=== PATIENT | female | born 1950 | race Caucasian/White ===

== ENCOUNTER 2019-04-17 12:17 | Outpatient (CLI) | payer MEDICARE, OTHER, SELFPAY ==
[2019-04-17 13:07] LABS: Basophils # 0.1 10^3/uL (0.0-0.1); Basophils % 0.7 %; Eosinophils # 0.3 10^3/uL (0.0-0.8); Eosinophils % 2.6 %; Hematocrit 49.8 % (37.0-47.0); Hemoglobin 16.1 g/dL (11.5-15.3); Lymphocytes # 2.8 10^3/uL (0.8-4.8); Lymphocytes % 26.1 %; Mean Corpuscular HGB Conc 32.3 g/dL (30.0-36.0); Mean Corpuscular Hemoglobin 27.7 pg (28.0-34.0); Mean Corpuscular Volume 85.6 fL (81-99); Mean Platelet Volume 11.4 fL (7.4-10.4); Monocytes # 0.7 10^3/uL (0.2-0.9); Monocytes % 6.4 %; Neutrophils # 6.9 10^3/uL (1.8-7.7); Neutrophils % 63.8 %; Nucleated Red Blood Cells % 0 %; Platelet Count 352 10^3/cmm (130-400); Red Blood Count 5.82 10^6/uL (4.1-5.3); Red Cell Distribution Width 14.4 % (12.1-15.1); White Blood Count 10.8 10^3/uL (4.0-10.0)
[2019-04-17 13:56] LABS: Estmated Average Glucose 229; Hemoglobin A1C 9.6 % (4.0-6.0)
[2019-04-17 13:58] LABS: Alanine Aminotransferase 23 U/L (0-33); Albumin Level 4.5 g/dL (3.5-5.2); Alkaline Phosphatase 84 IU/L (35-105); Anion Gap 21.3 (5-19); Aspartate Amino Transferase 15 U/L (0-32); Blood Urea Nitrogen 15 mg/dL (8-23); Calcium 10.7 mg/dL (8.5-10.5); Carbon Dioxide 23 mmol/L (22-29); Chloride 103 mmol/L (98-107); Globulin 3.6 g/dL (1.3-4.6); Glomerular Filtration Rate 98.8 mL/min (90-130); Glucose 214 mg/dL (65-115); Potassium 4.3 mmol/L (3.5-5.1); Sodium 143 mmol/L (136-145); Thyroid Stimulating Hormone 2.88 uIU/mL (0.27-4.20); Total Bilirubin 0.2 mg/dL (0.15-1.2); Total Protein 8.1 g/dL (6.6-8.7)
[2019-04-17 14:08] LABS: 25 Hydroxy Vitamin D 22 ng/mL (30-100)
== END 2019-04-17 12:18 | disposition home or self-care (01) ==
PROVIDERS: PCP Nurse Practitioner Family; Visit Provider Nurse Practitioner Family
DX: E11.9 Type 2 diabetes mellitus without complications (principal); I10 Essential (primary) hypertension
CPT/HCPCS: 80053; 82306; 83036; 84443; 85025

== ENCOUNTER 2019-04-27 11:40 | Outpatient (CLI) | payer MEDICARE, OTHER, SELFPAY ==
--- NOTE | 2019-04-27 12:43 | CT_ITS ---
WS: [id number] CT ABDOMEN AND PELVIS NONCONTRAST HISTORY: ABDOMINAL PAIN,BLOATING, FLATULENCE AND GAS PAIN TECHNIQUE: Imaging performed through the abdomen and pelvis. Coronal and sagittal reformats are submi tted. All CT scans at [facility] use at least one of these dose optimization techniques: automated exposure control; mA and/or kV adjustment per patient size (includes targeted exams where d ose is matched to clinical indication); or iterative reconstruction. DLP: 1133.02 mGycm COMPARISON: 08/02/2017 Lower thorax: Lung bases are clear. No hiatal hernia. Liver: Normal size liver with mild hepatic steatosis. No bile duct dilatation. Gallbladder: Prior cholecystectomy. Pancreas: Normal. Spleen: Normal. Adrenal glands: LEFT adrenal nodule measures 15 mm and is stable. RIGHT adrenal gland is normal. Right kidney: Normal size with no stones, masses or atrophy. Left kidney: Normal size with no stones, mass or atrophy. Moderate atherosclerosis throughout the abdominal aorta. No aneurysm. No free fluid, intraperitoneal air or significant lymphadenopathy. GI tract: Prior appendectomy. No GI tract obstruction. No GI tract obstruction. There is a ventral ab dominal wall hernia for which a loop of transverse colon is partially extending through. Not causing a significant obstruction. Similar to the prior study. Small lipoma in the duodenal C-loop is unchang ed. Abdominal wall: Ventral abdominal wall hernia above the umbilicus contains a partially extruded porti on of the transverse colon. No obstruction. There is a larger fat-containing abdominal wall hernia ov er the pelvis. LEFT lateral spigelian hernia may have been surgically fixed. Soft tissue lipomas are present over the LEFT external oblique muscle and also within the gluteus muscles of the LEFT pelvis . Pelvis: No free fluid or adenopathy. Status post hysterectomy. Osseous structures: RIGHT convex curvature of the lumbar spine. CT/CT abdomen pelvis wo con [id number] IMPRESSION: 1. No acute abdominal or pelvic abnormalities. 2. Prior cholecystectomy and hysterectomy. 3. Mild hepatic steatosis. 4. Stable supraumbilical and infraumbilical abdominal wall hernias with no obs truction of the GI tract. 5. Moderate atherosclerosis aorta.
[2019-04-27] MEDS: iohexol 300 mg/mL 50 mL Btl PO (13:33)
== END 2019-04-27 11:41 | disposition home or self-care (01) ==
LOC: RADWPI 11:46
PROVIDERS: Family Provider Nurse Practitioner Family; PCP Nurse Practitioner Family; Visit Provider Nurse Practitioner Family
DX: K42.9 Umbilical hernia without obstruction or gangrene (principal); I70.0 Atherosclerosis of aorta; R14.0 Abdominal distension (gaseous); R14.1 Gas pain; K76.0 Fatty (change of) liver, not elsewhere classified; Z90.49 Acquired absence of other specified parts of digestive tract; Z90.710 Acquired absence of both cervix and uterus
CPT/HCPCS: 74176

== ENCOUNTER 2019-05-04 07:17 | Outpatient (CLI) | payer MEDICARE, OTHER, SELFPAY ==
--- NOTE | 2019-05-04 08:30 | ECG_ITS ---
NAME OF STUDY: LEXISCAN SESTAMIBI STRESS TEST INDICATION: Chest Pain, PROCEDURE: At the baseline, the EKG revealed normal sinus rhythm with some nonspecific T wave changes. The baseline blood pressure was 182/83 mm Hg with a heart rate of 77 beats/min. Lexiscan was infused over a period of 20 seconds. A total of 0.4 milligrams of Lexiscan was infused. The stress phase was continued for a total of 5 minutes. Heart rate at the end of the stress phase was 88 with a blood pressure 168/79. The EKG at the peak infusion revealed no significant changes. Sestamibi was injected 20 seconds after the Lexiscan infusion. Blood pressure at the end of the recovery phase was 164/79 with a heart rate of 76 per minute. CONCLUSION: 1. No significant EKG changes with the LexiScan infusion 2. No LexiScan induced chest pain or cardiac arrhythmia 3. Normal blood pressure and heart rate response 4. Sestamibi/sestamibi perfusion scan pending; see separate report. Electronically Signed On 05-08-2019 22:59:49 INDUSTRIAL ENGINEERING DIRECTOR by Wenceslao Salazar M.D. [email or web address]
--- NOTE | 2019-05-04 08:30 | NMCV_ITS ---
NM negrito perf SPECT r/s* [id number] Nat Amin Age: 69 Gender: F : 1950 Exam Date: 05/04/2019 08:30 Ordering Phys: Guy Bee NP Technologist: ABDOUL Fernandez Exam Location: [facility] Indications: CHEST PAIN STRESS TEST Please see separate stress test report in [facility] for full findings IMAGE PROTOCOL Rest/Stress 1 Lexiscan Day Radiopharmaceutical Dose (mCi) Administration Site Administered by Rest: Tc-99m 10.9 IV ABDOUL Zurita Sestamibi Stress:Tc-99m 32.7 IV ABDOUL Zurita Sestamibi Rest: 04-May-2019 60 Discovery 630 Stress: 04-May-2019 30 Discovery 630 0.4mg Lexiscan. Images obtained in supine and prone position. SPECT RESULTS Technical Quality: Excellent Raw Data Analysis: Normal Image Corrections: No attenuation or motion correction applied Summed Stress Score: 1 Summed Rest Score: 1 Summed Difference Score: 1 PERFUSION FINDINGS Small area of slightly decreased tracer uptake in the mid infero-lateral region, with the supine imaging. Some reversibility was noted in this region with the supine imaging. No significant perfusion abnormalities were noted with the prone imaging FUNCTIONAL RESULTS (calculated via Gated SPECT) Stress Image LV EF (%): 89 Stress EDV (mL):61 TID: 1.23 Stress ESV (mL):7 FUNCTIONAL FINDINGS: Segmental wall motion analysis revealing no gross wall motion normalities. IMPRESSIONS 1. Myocardial perfusion imaging revealing a small area of reversible defect in the mid inferolateral region, suggestive of ischemia in the distribution of the left circumflex artery. However because of the inconsistency in this finding, the reliability is very questionable. Elevated transient ischemic dilatation index may suggest endocardial ischemia. However the positive predictive value of this finding is limited. 2. Normal LV ejection fraction of 89%. 3. LV wall motion analysis revealing no gross wall motion normalities. 4. Normal LV volume. No similar previous studies are available for comparison Dr Wenceslao Salazar MD [facility] (Electronically Signed) Final Date: 04 May 2019 21:50 S
[2019-05-04 08:31] VITALS: BMI 33.2
[2019-05-04] MEDS: regadenoson 0.4 Mg/5 ml Syringe IVP (09:34)
[2019-05-04 10:08] VITALS: BP 170/79; PULSE 96
== END 2019-05-04 07:18 | disposition home or self-care (01) ==
LOC: RAD 07:19
PROVIDERS: Family Provider Nurse Practitioner Family; PCP Nurse Practitioner Family; Visit Provider Nurse Practitioner Family
DX: R07.9 Chest pain, unspecified (principal)
CPT/HCPCS: 78452; 93017; A9500; J2785

== ENCOUNTER 2019-07-10 07:54 | Day surgery (SDC) | payer MEDICARE, OTHER, SELFPAY ==
[2019-07-10 08:14] VITALS: BP 167/83; PULSE 73; RESP 18; TEMP 36.4; O2SAT 97
[2019-07-10] MEDS: sodium chloride 0.9% 1,000 ML 30 ML IV (08:25)
[2019-07-10 08:27] LABS: Glucose Point of Care 85 mg/dL (70-110)
--- NOTE | 2019-07-10 08:36 | W.PM.OPSFHP ---
Same Day Surgery H&P Indication for Procedure/HPI DATE OF PROCEDURE: July 10, 2019 CHIEF COMPLAINT/INDICATIONFOR SURGICAL PROCEDURE: history of colon cancer PREOP DIAGNOSIS: history of colon cancer PLANNED PROCEDRUE: Operation Date: 07/10/19 09:20 Proposed Procedures p Colonoscopy 84470 Z85.038(Not Applicable) - Holger Velazquez MD Medications/Allergies* Home Medications Medication Instructions Recorded Confirmed Type amlodipine 10 mg tablet 10 mg PO DAILY tab 03/14/19 07/10/19 History insulin degludec 100 unit/mL (3 45 unit SUBCUT BID 03/14/19 07/10/19 History mL) subcutaneous pen aspirin 81 mg tablet,delayed 81 mg PO DAILY 05/28/19 07/10/19 History release empagliflozin 10 mg tablet 10 mg PO DAILY 05/28/19 07/10/19 History levothyroxine 50 mcg capsule 50 mcg PO DAILY 05/28/19 07/10/19 History metoprolol succinate 50 mg 50 mg PO BID 05/28/19 07/10/19 History tablet,extended release 24 hr omega-3 fatty acids 1,000 mg 1,000 mg PO DAILY 05/28/19 07/10/19 History capsule cholecalciferol (vitamin D3) 25 mcg PO DAILY 07/10/19 07/10/19 History [Vitamin D3] Allergies/Adverse Reactions Allergy/AdvReac Type Severity Reaction Status Date / Time acetaminophen [From Codaphen] Allergy UNK Verified 07/09/19 09:08 atorvastatin [From Lipitor] Allergy UNK Verified 07/09/19 09:08 codeine [From Codaphen] Allergy UNK Verified 07/09/19 09:08 lactase [From Dairy Aid] Allergy UNK Verified 07/09/19 09:08 latex Allergy UNK Verified 07/09/19 09:08 Penicillins Allergy UNK Verified 07/09/19 09:08 soy Allergy UNK Verified 07/09/19 09:08 Sulfa (Sulfonamide Allergy UNK Verified 07/09/19 09:08 Antibiotics) Current Medications: Generic Name Dose Route Start Last Admin Trade Name Freq PRN Reason Stop Dose Admin Sodium Chloride 1,000 mls @ 30 mls/hr 07/10/19 08:00 07/10/19 08:25 Sodium Chloride 0.9% IV 07/11/19 07:59 30 mls/hr .Q24H CHRISTINE Administration Pertinent History/Comorbid Conditions* Medical History (Updated 05/30/19 @ 17:09 by Rosio Canales MD) Borderline hyperlipidemia Colon cancer Diabetes Diabetes 1.5, managed as type 2 History of colon cancer HTN (hypertension) with goal to be determined Hypothyroidism Incisional hernia Statin intolerance Surgical History (Updated 05/22/19 @ 09:47 by Holger Velazquez MD) H/O ventral hernia repair History of cholecystectomy History of colon resection Status post colonoscopy (~04/2014) Family History (Updated 05/21/19 @ 14:59 by Teddy Burns) Diabetes Father Cancer Denies family history of Anesthesia complication Social History Smoking and tobacco status: former smoker Alcohol intake: never Pertinent Exam Findings alert, oriented x 3 and clear to auscultation bilaterally Recommendations Surgery/Procedure today Coding Level of Care Code Acute Manager Internal for Bryn Li
--- NOTE | 2019-07-10 09:01 | ANES.PREANE2 ---
Pre-Anesthetic Assessment Pre-Anesthetic Assessment: Height/Weight: Height 1.52 m Weight 74.843 kg Temp Pulse Resp BP Pulse Ox 97.5 F L 73 18 167/83 97 07/10/19 08:14 07/10/19 08:14 07/10/19 08:14 07/10/19 08:14 07/10/19 08:14 Preop Diagnosis: history of colon cancer Proposed Procedure: Operation Date: 07/10/19 09:20 Proposed Procedures p Colonoscopy 89743 Z85.038(Not Applicable) - Holger Velazquez MD Was Beta Pankaj taken within 24 hours: Yes Last intake: Intake Last Liquid Date 07/09/19 Last Liquid Time 19:30 Last Solid Date 07/09/19 Last Solid Time 19:30 Social: Social History: No alcohol and No tobacco Exam: Pre-Anes Outpt Exam: alert, oriented x 3, clear to auscultation bilaterally and regular rate & rhythm Airway: Submandibular: WNL Cervical ROM: WNL MP: 2 Dentition: False History/ROS: No significant history except as noted and No significant complaints Pulmonary: Pulmonary: None reported CV/HEM: CV/HEM: HTN : : None reported Hepatic: Hepatic: None reported GI: GI: GERD Metabolic: Metabolic: Thyroid Musc/skel: Musc/skel: OA/DJD Neuropsych: Neuropsych: None reported Anesthetic Plan: ASA status: 2 Anesthesia: Anesthesia Evaluation and MAC Risk of > 500 ml blood loss (7ml/kg in children): No Meds/Allergies Current Medications: Current Medications Generic Name Dose Route Start Last Admin Trade Name Freq PRN Reason Stop Dose Admin Sodium Chloride 1,000 mls @ 30 ml s/hr 07/10/19 08:00 07/10/19 08:25 Sodium Chloride 0.9% IV 07/11/19 07:59 30 mls/hr .Q24H CHRISTINE Administration PFSH Anesthesia PFSH: Social History Smoking and tobacco status: former smoker Alcohol intake: never Data Anesthesia Other Labs: Laboratory Results - last 48 hr 07/10/19 08:23 POC Glucose 85 Cardiac Studies: No Data to Display
[2019-07-10 09:49] VITALS: BP 91/52; PULSE 65; RESP 16; TEMP 36.3; O2SAT 94
[2019-07-10 09:53] VITALS: BP 102/56; PULSE 74; RESP 18; O2SAT 92
== END 2019-07-10 10:29 | disposition home or self-care (01) ==
PROVIDERS: Family Provider Nurse Practitioner Family; Visit Provider Surgery
PROC: 0DJD8ZZ Inspection of Lower Intestinal Tract, Via Natural or Artificial Opening Endoscopic (ICD-10-PCS; CPT 45378; principal; 2019-07-10 09:15)
DX: Z85.038 Personal history of other malignant neoplasm of large intestine (principal); K57.30 Diverticulosis of large intestine without perforation or abscess without bleeding; K64.8 Other hemorrhoids; I10 Essential (primary) hypertension; K21.9 Gastro-esophageal reflux disease without esophagitis; M19.90 Unspecified osteoarthritis, unspecified site; Z87.891 Personal history of nicotine dependence; E13.9 Other specified diabetes mellitus without complications; Z79.4 Long term (current) use of insulin
CPT/HCPCS: 45385; 12345; 36416; 82962; 88305; J2001; J2704; J7030

== ENCOUNTER 2019-08-27 10:50 | Outpatient (CLI) | payer MEDICARE, OTHER, SELFPAY ==
--- NOTE | 2019-08-27 10:58 | MM_ITS ---
WS: [id number] SCREENING DIGITAL MAMMOGRAM WITH CAD HISTORY: SCREENING COMPARISON: None available. Bilateral CC and MLO views submitted. Computer aided detection analyzed. Breast composition: There are scattered areas of fibroglandular density. Well-circumscribed 8 mm nodu le in the medial RIGHT breast near 9:00 needs further evaluation. There is additional mild asymmetry seen on the lateral projection of the RIGHT breast in the upper portion for which additional imaging recommended also. There are benign calcifications within each breast. RIGHT breast: Spot compression views (CC and MLO). True ML. Ultrasound to follow if abnormality persi sts. MM/[place] [id number] IMPRESSION: BI-RADS: 0-Incomplete: Need additional imaging evaluation FOLLOW UP: Need Additional Imaging
== END 2019-08-27 10:51 | disposition home or self-care (01) ==
LOC: RADSHAW 10:57
PROVIDERS: PCP Nurse Practitioner Family; Visit Provider Nurse Practitioner Family
DX: Z12.31 Encounter for screening mammogram for malignant neoplasm of breast (principal); N63.15 Unspecified lump in the right breast, overlapping quadrants; N64.89 Other specified disorders of breast
CPT/HCPCS: 77067

== ENCOUNTER 2019-09-03 09:31 | Outpatient (CLI) | payer MEDICARE, OTHER, SELFPAY ==
--- NOTE | 2019-09-03 09:39 | US_ITS ---
WS: [id number] ADDITIONAL VIEWS RIGHT BREAST RIGHT breast ultrasound, limited HISTORY: ABNORMAL MAMMOGRAM COMPARISON: Mammogram 08/27/2019 Compression views right CC and MLO projection. True ML also submitted. Well-circumscribed nodule persists measuring 8 mm 3:00 axis of the RIGHT breast at a mid to anterior depth. Asymmetry in the upper outer quadrant with no distortion persists. Probably normal fibroglandu lar density for this patient. Ultrasound will be obtained. RIGHT breast ultrasound, limited. Ultrasound at 3:00 demonstrates a hypoechoic mass which is well-circumscribed measuring 6 x 6 x 7 mm. Corresponds to the mammographic abnormality. Upper-outer quadrant of the RIGHT breast is negative. No abnormal lymph nodes. Ultrasound-guided biopsy recommended of the hypoechoic mass at 3:00 RIGHT breast, 2 cm from nipple. F avor this is probably benign. With no prior studies for comparison biopsy should be obtained at this time. US/US breast RT limited* [id number] IMPRESSION: BI-RADS: 4A-Suspicious: Low FOLLOW-UP: Biopsy Recommended
== END 2019-09-03 09:32 | disposition home or self-care (01) ==
LOC: RADSHAW 09:37
PROVIDERS: PCP Nurse Practitioner Family; Visit Provider Nurse Practitioner Family
DX: R92.8 Other abnormal and inconclusive findings on diagnostic imaging of breast (principal)
CPT/HCPCS: 76642; 77065

== ENCOUNTER → 2019-09-11 06:13 | Day surgery (SDC) | payer MEDICARE, OTHER, SELFPAY ==
[2019-09-10 09:38] VITALS: BMI 31.8
[2019-09-11] VITALS (15 sets, daily range): BP systolic 119–168; BP diastolic 65–91; PULSE 64–76; RESP 16–18; TEMP 37; O2SAT 69–96; BMI 31.8
--- NOTE | 2019-09-11 06:00 | XACV_ITS ---
Ht: 152 cm Wt: 74 kg BSA: 1.80 m2 Gender: Female : 1950 Any Known Allergies: Other Exam Priority: Routine Procedure(s): Procedure Description: Diagnostic procedure Procedure Description: Left Heart Catheterization Procedure Description: Left ventriculography Procedure Description: Coronary Angiography Diagnostic Cath Status: Elective Diagnostic Findings Patient with atypical pain and mild abnormality on stress testing referred for coronary angiography. Coronary circulation is codominant. The left main coronary artery is normal. The circumflex contains mild luminal irregularities in the midportion. The LAD is essentially normal however a small tiny branch of the first diagonal contains an 80% stenosis. The right coronary artery ends as a posterior left ventricular branch and a posterior descending artery. There is minor 20 to 30% stenosis in the proximal to midportion. Conclusions Mild nonobstructive coronary artery disease. Normal left ventricular function. Recommendations I called her for discussion. Medical treatment. Interventional RX Recommendation: medical therapy and/or counseling Diagnostic RX Recommendation: medical therapy and/or counseling Anticoagulation: Heparin Ventriculography Ejection Fraction: 60.0 % Pressures Phase:Rest AO : 106 mmHg / 54 mmHg ( 76 mmHg ) @ 2:13:00 AM 105 mmHg / 67 mmHg ( 84 mmHg ) @ 2:13:00 AM 137 mmHg / 61 mmHg ( 94 mmHg ) @ 2:21:00 AM 141 mmHg / 65 mmHg ( 98 mmHg ) @ 2:21:00 AM LV : 133 mmHg / -6 mmHg / @ 2:19:00 AM 139 mmHg / 2 mmHg / @ 2:21:00 AM 141 mmHg / -3 mmHg / @ 2:21:00 AM Valves Phase:DefaultPhase AV : 7.0 mmHg @ 7:30:01 AM 7.0 mmHg @ 7:30:01 AM AV Mean Gradient: 13.0 mmHg @ 7:30:01 AM Clinical Evaluation EBL: 5mL-10mL Procedural Details Procedure Consent Obtained. Current Diagnosis : Chest Pain. Pre-Procedure Time Out. Identified patient by full name and date of as verbalized by the patient/guarantor. Does the consent match the physician's order: Yes. Accurate & Complete Informed Consent: Yes. Inpatient/Outpatient History & Physical on Chart: Yes. If H&P is completed, is and addenduem needed: No; If yes, is the addendum complete: N/A. Visualize and Verify Site with Patient/Guarantor: N/A. Relevant Radiology Images available: Yes. Pre-op teaching completed and patient verbalized understanding. The risks, benefits, and alternatives of sedation and/or procedure were discussed by physician. The patient agrees to continue. Procedure started. [facility] Clinical Fraility Score: 3: Managing Well. Weight Reduction Specialist Indications: Suspected CAD. Chest Pain Symptom Assessment: Typical Angina Symptoms. Correct patient, site and procedure confirmed by cath team. Current diagnosis: Chest Pain. PERRLA. Strong, equal hand steam blocker bilaterally. Lungs clear x 5 lobes. IV Site on Arrival: 20 gauge in the left forearm. IV Fluids: 0.9% NaCl at KVO. 0 mL infused prior to offset label rewinder. Pre Procedural Pulses: right radial was 2+. Oxygen started at 2liters/min via nasal canula. right groin was prepped with chloroprep then draped in the usual sterile fashion. right radial was prepped with chloroprep then draped in the usual sterile fashion. Physician notified. Baseline sample Acquired. HR: 79 BPM. Patient's family unavailable. Baseline sample Acquired. HR: 83 BPM. Physician arrived. Physician scrubbed in. Immediate Pre-Procedure Time Out. Correct Patient: Yes; Correct Procedure: Yes; Correct Site: Yes; Correct Patient Position: Yes; Correct Supplies: Yes; Dried Flammable Prep: Yes; Blood Products Available: N/A;. Lidocaine 1% infiltrated to the right radial. Arterial access obtained. A 6 [place] TIG catheter in over wire. Multiple views taken of left coronary artery. Catheter redirected to the RCA. Multiple views taken of right coronary artery. Catheter removed over the exchange wire. A 6 [place] Angled Pig catheter in over wire. EDP Sample taken: LV 133/-7,18; HR: 78 BPM; SpO2: 95%. LV gram performed in HUMMEL @ 10 mL/second for a total of 30 mL. EDP Sample taken: LV 139/2,26; HR: 77 BPM; SpO2: 96%. Pullback taken: LV 141/-4,23; AO 137/61(94); Mean: 13mmHg, Peak to Peak: 7mmHg, SEP: 18sec/min; HR: 76 BPM; SpO2: 95%. Physician review of cine films. Catheter removed over the exchange wire. Physician scrubbed out. TR band placed. Hemostasis obtained. A TR Band was successful obtaining hemostatsis at the Right Radial artery insertion site. Post Procedure: Pulses reassessed and unchanged. PERRLA. Strong, equal hand steam blocker bilaterally. No VTE prophylaxis required. Total IV fluids: 50 mL. Contrast type used: Visipaque 320 mgI/mL, 500 mL bottle. Post-op diagnosis: Chest Pain. Complications: None. Estimated blood loss: 5mL-10mL. Procedure completed. Vital chart was stopped. Patient transferred by wheelchair to 1st floor. Medication's Wasted: Nitro = 49.8 mcg. Medication's Wasted: Lidocaine 1% = 18 mL. Medication's Wasted: Heparin = 1000 units. Site: Right Radial artery Sheath Size: 6 Fr Hemostasis Method: TR Band Hemostasis Success: Successful Procedure Medications Start: 7:07 AM Stop: 7:07 AM Medication: Versed Amount: 1 mg Route: I.V. Start: 7:07 AM Stop: 7:07 AM Medication: Fentanyl Amount: 50 mcg Route: I.V. Start: 7:09 AM Stop: 7:09 AM Medication: Verapamil Amount: 5 mg Route: I.A. Start: 7:09 AM Stop: 7:09 AM Medication: Nitrogylcerin Amount: 200 mcg Route: I.A. Start: 7:09 AM Stop: 7:09 AM Medication: Fentanyl Amount: 50 mcg Route: I.V. Start: 7:09 AM Stop: 7:09 AM Medication: Versed Amount: 1 mg Route: I.V. Start: 7:12 AM Stop: 7:12 AM Medication: Heparin Amount: 5000 units Route: I.V. I, the attending physician, have reviewed and verified all procedure medications. Yes, all medications given per verbal order History/Risk Factors Hypertension: Yes Dyslipidemia: Yes Diabetic Therapy: Insulin Peripheral Arterial Disease (PAD): No Myocardial Infarction (MO): No Obesity: No Renal Disease: No Tobacco Use: Former Prior Interventions PCI: No CABG: No Valve Surgery: No Report Signatures Finalized by:Dr. Phuc Fowler MD on 09/11/2019 7:52:53 AM
[2019-09-11] MEDS: diphenhydrAMINE 50 mg Capsule PO (06:45)
[2019-09-11 06:48] LABS: Basophils # 0.1 10^3/uL (0.0-0.1); Basophils % 0.9 %; Eosinophils # 0.7 10^3/uL (0.0-0.8); Eosinophils % 5.7 %; Hematocrit 50.8 % (37.0-47.0); Lymphocytes # 3.7 10^3/uL (0.8-4.8); Lymphocytes % 30.7 %; Mean Corpuscular HGB Conc 31.5 g/dL (30.0-36.0); Mean Corpuscular Hemoglobin 27.7 pg (28.0-34.0); Mean Corpuscular Volume 87.9 fL (81-99); Mean Platelet Volume 10.8 fL (7.4-10.4); Monocytes # 0.8 10^3/uL (0.2-0.9); Monocytes % 6.3 %; Neutrophils # 6.8 10^3/uL (1.8-7.7); Neutrophils % 55.8 %; Nucleated Red Blood Cells % 0 %; Platelet Count 339 10^3/cmm (130-400); Red Blood Count 5.78 10^6/uL (4.1-5.3); Red Cell Distribution Width 14.2 % (12.1-15.1); White Blood Count 12.1 10^3/uL (4.0-10.0)
[2019-09-11 07:03] LABS: Anion Gap 15.9 (5-19); Blood Urea Nitrogen 10 mg/dL (8-23); Calcium 9.8 mg/dL (8.5-10.5); Carbon Dioxide 24 mmol/L (22-29); Chloride 103 mmol/L (98-107); Glomerular Filtration Rate 98.8 mL/min (90-130); Glucose 188 mg/dL (65-115); Osmolality Calculated 289 mOsm/kg (285-295); Potassium 3.9 mmol/L (3.5-5.1); Sodium 139 mmol/L (136-145)
--- NOTE | 2019-09-11 08:44 | PC.NURSE ---
TR Band Air released from TR band at this time per protocol. No s/s of bleeding or hematoma noted. Radial pulse present. No c/o pain. no needs voiced. Will continue to monitor. Call light in reach.
--- NOTE | 2019-09-11 10:15 | PC.NURSE ---
TR band removed TR band removed at this time per protocol. No s/s of bleeding or hematoma noted. Site dressed with bandage. Pt instructed not to use R hand today or apply any pressure, verbalized understanding. Will monitor.
--- NOTE | 2019-09-11 11:05 | PC.NURSE ---
Discharged Discharge instructions reviewed with pt, verbalized understanding. Walked to [facility] and discharged home with .
== END | disposition home or self-care (01) ==
PROVIDERS: PCP Nurse Practitioner Family; Visit Provider Internal Medicine Cardiovascular Disease
DX: R94.39 Abnormal result of other cardiovascular function study (principal); E78.5 Hyperlipidemia, unspecified; E11.9 Type 2 diabetes mellitus without complications; Z79.82 Long term (current) use of aspirin; Z79.4 Long term (current) use of insulin; I10 Essential (primary) hypertension; Z87.891 Personal history of nicotine dependence
CPT/HCPCS: 36415; 80048; 85025; 93452; C1769; C1887; C1894; J1644; J2001; J2250; J3010; J3490; J7030; Q0163; Q9967

== ENCOUNTER → 2019-09-18 12:10 | Outpatient (BNVA) | payer MEDICARE, OTHER, SELFPAY | PROVIDERS: PCP Nurse Practitioner Family; Visit Provider Nurse Practitioner Family | DX: I25.10 Atherosclerotic heart disease of native coronary artery without angina pectoris (principal); R40.0 Somnolence | CPT/HCPCS: 80048 ==

== ENCOUNTER 2019-09-21 11:30 | Outpatient (CLI) | payer MEDICARE, OTHER, SELFPAY ==
--- NOTE | 2019-09-21 11:39 | US_ITS ---
WS: [id number] ULTRASOUND-GUIDED RIGHT BREAST BIOPSY CLINICAL INFORMATION: RIGHT BREAST ABNORMAL MAMMOGRAM COMPARISON: None. FINDINGS: The procedure including risks, benefits, and complications were discussed with the patient who agreed to proceed. Using sterile technique patient was prepped and draped in the usual sterile fashion. Aft er 1% lidocaine utilizing real-time ultrasound guidance one 14-gauge core obtained of the right breas t lesion at the 3 o'clock position. Hypoechoic lesion subsequently decompressed and disappeared after 1 biopsy. This was presumably mostly cystic. Small amount of tissue sent to pathology Pathology demonstrates Breast, right, mass, 3:00 , biopsy: - Benign adipose tissue - No malignancy identified US/[place] [id number] IMPRESSION: 1. Uncomplicated ultrasound-guided right breast biopsy. 2. The pathology demonstrates benign adipose tissue. No malignancy identified. BI-RADS: 2-Benign FOLLOW UP: 1 Year Follow-up Recommend return to annual screening mammography.
== END 2019-09-21 11:31 | disposition home or self-care (01) ==
LOC: RAD 11:33
PROVIDERS: PCP Nurse Practitioner Family; Visit Provider Nurse Practitioner Family
DX: R92.8 Other abnormal and inconclusive findings on diagnostic imaging of breast (principal); N63.15 Unspecified lump in the right breast, overlapping quadrants
CPT/HCPCS: 19083; 88305

== ENCOUNTER 2019-10-01 12:46 | Outpatient (CLI) | payer MEDICARE, OTHER, SELFPAY ==
--- NOTE | 2019-10-01 12:58 | XR_ITS ---
WS: [id number] LEFT HIP HISTORY: PAIN IN LEFT HIP COMPARISON: None available. LEFT hip: Mild narrowing of the hip joint. No fracture or dislocation. Mild enthesopathy at the great er trochanter. Mild degenerative changes at the SI joint. Moderate atherosclerosis femoral artery. XR/XR hip LT 2-3V wo/w pel* [id number] IMPRESSION: 1. No hip fracture. 2. Mild LEFT hip joint arthritis.
== END 2019-10-01 12:47 | disposition home or self-care (01) ==
PROVIDERS: Family Provider Nurse Practitioner Family; PCP Nurse Practitioner Family; Visit Provider Nurse Practitioner Family
DX: M25.552 Pain in left hip (principal); M13.852 Other specified arthritis, left hip
CPT/HCPCS: 73502